=== PATIENT | female | born 1995 | race Two or more races ===

== ENCOUNTER → 2019-11-25 | Emergency (ER) | payer OTHER ==
[~2019-11-25] VITALS: Ht 160 cm; Wt 63.5 kg
[~2019-11-25] MED LIST: IBUPROFEN 800 MG TAB PO ONE
[2019-11-25 17:01] VITALS: BP 104/43
== END | disposition home or self-care (01) ==
LOC: ER 16:42
DX: N61.0 Mastitis without abscess (principal); R50.9 Fever, unspecified